=== PATIENT | female | born 1975 | race Caucasian/White ===

== ENCOUNTER 2020-06-22 15:48 | Emergency (ER) | payer MEDICAID ==
[~2020-06-22] VITALS: Ht 132.1 cm; Wt 59.0 kg
[2020-06-22 15:56] VITALS: BP 139/78
--- NOTE | 2020-06-22 16:06 | NUR ---
RECEIVED A 44/F FROM [facility] WITH A C/O DIZZINESS AND UPPER BACK PAIN. PT REPORTS BACK PAIN HAS LASTED APPROX 1 WEEK WHILE DIZZINESS HAS STARTED TODAY. REPORTS NAUSEA AND VOMITTING X 3 EPISODES. IN BED FOR MSE.
[2020-06-22] MEDS ORDERED: ONDANSETRON 4 MG ODT SL STA (16:07)
--- NOTE | 2020-06-22 16:10 | NUR ---
PERSISTANT VOMITTING NOTED - VERBAL ORDER FOR IV NS BOLUS AND 10MG REGLAN IVP RECEIVED. WILL MEDICATE ORDERED.
[2020-06-22] MEDS ORDERED: METOCLOPRAMIDE 10 MG/2 ML INJ VIAL ONE (16:12)
[2020-06-22] MEDS ORDERED: METOCLOPRAMIDE 10 MG/2 ML INJ VIAL IVP ONE (16:15)
[2020-06-22] MEDS ORDERED: NACL 0.9% 1,000 ML IV ONE (16:15)
[2020-06-22 16:35] LABS: BASOPHILS % (AUTO) 0.2 % (0.0-2.0); EOSINOPHILS # (AUTO) 0.1 K/uL (0-0.4); EOSINOPHILS % (AUTO) 0.6 % (0.0-4.0); HEMATOCRIT 33.9 % (36-48); HEMOGLOBIN 10.2 g/dL (12.0-16.0); LYMPHOCYTES # (AUTO) 4.1 K/uL (2.5-16.5); LYMPHOCYTES % (AUTO) 41.6 % (20.5-51.1); MEAN CORPUSCULAR HEMOGLOBIN 19 pg (27-31); MEAN CORPUSCULAR HGB CONC 30 g/dL (33-37); MEAN CORPUSCULAR VOLUME 64.5 fL (80-94); MONOCYTES # (AUTO) 0.5 K/uL (0.8-1.0); MONOCYTES % (AUTO) 5.4 % (1.7-9.3); NEUTROPHILS # (AUTO) 5.2 K/uL (1.8-7.7); NEUTROPHILS % (AUTO) 52.2 % (42.2-75.2); PLATELET COUNT (AUTO) 393 K/uL (140-450); RED BLOOD CELL COUNT(AUTO) 5.26 MIL/uL (4.20-5.40); RED CELL DISTRIBUTION WIDTH 19.7 % (11.6-13.7)
--- NOTE | 2020-06-22 16:39 | NUR ---
NO ACTIVE VOMITTING POST REGLAN AND ZOFRAN ADMINISTRATION. PT REPORTS RELIEF OF SYMTPOMS AT THIS TIME.
[2020-06-22 16:49] LABS: ANION GAP 15.3 (8-16); CARBON DIOXIDE 27.2 mmol/L (21-32); CREATININE 0.6 mg/dL (0.6-1.3); POTASSIUM 3.5 mmol/L (3.5-5.1)
[2020-06-22 17:01] LABS: ALBUMIN 3.7 g/dL (3.4-5.0); TOTAL BILIRUBIN 0.1 mg/dL (0.0-1.0)
[2020-06-22 17:27] VITALS: BP 139/78
--- NOTE | 2020-06-22 17:27 | NUR ---
Patient discharged with v/s stable. Written and verbal after care instructions given and explained. Patient alert, oriented and verbalized understanding of instructions. Ambulatory with steady gait. All questions addressed prior to discharge. ID band removed. Patient advised to follow up with PMD. Rx of MEFORMIN & ZOFRAN given. Patient educated on indication of medication including possible reaction and side effects. Opportunity to ask questions provided and answered.
== END 2020-06-22 17:27 | disposition home or self-care (01) ==
LOC: MED 15:48
DX: R11.2 Nausea with vomiting, unspecified (principal); E11.65 Type 2 diabetes mellitus with hyperglycemia; R42 Dizziness and giddiness
CPT/HCPCS: 36415; 80048; 80076; 81002; 81025; 83690; 85025; 96361; 96374; 99283; J2765; Q0162; 93005; J7030